=== PATIENT | female | born 1980 | race African-American/Black ===

== ENCOUNTER 2019-04-17 08:29 | Inpatient (IN) ==
[2019-04-17] MEDS ORDERED: CITRIC ACID/SODIUM CITRATE 30 ML UDCUP PO ONE (08:45)
[2019-04-17] MEDS ORDERED: ceFAZolin 3,000 MG in SYRINGE 1 EACH IV ONE (08:45)
[2019-04-17] MEDS ORDERED: FAMOTIDINE 20 MG/2 ML VIAL IV ONE (08:45)
[2019-04-17] MEDS ORDERED: OXYTOCIN/LR 30 UNIT/1,000 ML BAG IV ONE (08:49)
[2019-04-17 09:23] LABS: Basophils % 0.6 % (0.0-0.8); Eosinophils # 0.1 10*3/uL (0.0-0.87); Eosinophils % 1.6 % (0.00-10.9); Hematocrit 36.5 VOL% (35.7-47.0); Hemoglobin 11.2 GM/DL (12.0-16.0); Immature Granulocytes % 0.5 %; Immature Granulocytes Absolute 0.03 #; Lymphocytes # 1.3 10*3/uL (1.4-4.0); Lymphocytes % 20.9 % (21.3-54.2); Mean Corpuscular HGB Conc 30.7 GM/DL (32-36); Mean Corpuscular Volume 80.2 FL (87-102); Mean Platelet Volume 9.4 FL (9.6-12.0); Monocytes % 5.2 % (1.7-12.7); Neutrophils % 71.2 % (38.7-73.9); Platelet Count 306 T/CUMM (130-400); Red Blood Count 4.55 MC/CUMM (3.8-5.5); Red Cell Distribution Width 16.7 % (9.3-17.3); White Blood Count 6.3 T/CUMM (4-12)
[2019-04-17] MEDS: LACTATED RINGERS 1,000 ML IV SCH ×2 (09:30→23:31)
[2019-04-17 09:34] LABS: INR 0.9; PT Patient Result 9.4 SECS (9.6-12.2); Partial Thromboplastin Time 28.5 SECS (20.8-36.0)
[2019-04-17 09:39] LABS: Bilirubin,Direct 0.16 MG/DL (0.0-0.20); Uric Acid 5.1 MG/DL (2.6-6.0)
[2019-04-17] MEDS ORDERED: fentaNYL 100 MCG/2 ML VIAL ONE (10:37)
[2019-04-17] MEDS ORDERED: PHENYLEPHRINE 1 MG/10 ML SYRINGE IV ONE ×2 (10:37→14:05)
[2019-04-17] MEDS ORDERED: BUPIVACAINE SPINAL 0.75% 2 ML AMP SPINAL ONE (10:38)
[2019-04-17] MEDS ORDERED: MORPHINE 10 MG/10 ML VIAL ONE (10:38)
[2019-04-17] MEDS ORDERED: ONDANSETRON 4 MG/2 ML VIAL ONE (10:38)
[2019-04-17] MEDS ORDERED: OXYTOCIN 10 UNIT/ML VIAL IV ONE (10:59)
[2019-04-17 12:45] LABS: Cord Arterial Blood HCO3 14.6 MMOL/L
[2019-04-17 12:46] LABS: Cord Venous Blood HCO3 16.3 MMOL/L; Cord Venous Blood PCO2 66.8 MMHG; Cord Venous Blood PO2 8.4
[2019-04-17] MEDS ORDERED: TISSUE ADHESIVE 1 EACH APPLICATOR TOP ONE (12:47)
[2019-04-17] MEDS ORDERED: diphenhydrAMINE 50 MG/1 ML VIAL IV PRN (13:57)
[2019-04-17] MEDS ORDERED: HYDROmorphone 2 MG/1 ML VIAL IV PRN (13:57)
[2019-04-17] MEDS ORDERED: OXYTOCIN/LR 20 UNIT/1,000 ML BAG IV ONE ×2 (13:57→14:44)
[2019-04-17] MEDS ORDERED: ONDANSETRON 4 MG/2 ML VIAL IV PRN (13:57)
[2019-04-17] MEDS ORDERED: LIDOCAINE 2% 5 ML VIAL ONE (14:05)
[2019-04-17] MEDS ORDERED: PROPOFOL 200 MG/20 ML VIAL IV ONE (14:05)
[2019-04-17] MEDS: KETOROLAC 30 MG/1 ML VIAL IV SCH ×2 (14:14→21:19)
[2019-04-17] MEDS ORDERED: ACETAMINOPHEN 325 MG TABLET PO PRN (16:38)
[2019-04-17] MEDS ORDERED: RHO(D) IMMUNE GLOBULIN 300 MCG SYRINGE IM ONE (16:38)
[2019-04-17] MEDS: ceFAZolin 1,000 MG in SYRINGE 1 EACH IV SCH (18:29)
[2019-04-17 19:11] LABS: Basophils % 0.3 % (0.0-0.8); Eosinophils % 0.1 % (0.00-10.9); Hematocrit 33.7 VOL% (35.7-47.0); Hemoglobin 10.3 GM/DL (12.0-16.0); Immature Granulocytes % 0.6 %; Immature Granulocytes Absolute 0.06 #; Lymphocytes # 1.1 10*3/uL (1.4-4.0); Lymphocytes % 10.8 % (21.3-54.2); Mean Corpuscular HGB Conc 30.6 GM/DL (32-36); Mean Corpuscular Volume 81.2 FL (87-102); Mean Platelet Volume 9.7 FL (9.6-12.0); Monocytes % 5.9 % (1.7-12.7); Neutrophils % 82.3 % (38.7-73.9); Platelet Count 287 T/CUMM (130-400); Red Blood Count 4.15 MC/CUMM (3.8-5.5); Red Cell Distribution Width 16.8 % (9.3-17.3); White Blood Count 9.9 T/CUMM (4-12)
[2019-04-17] MEDS ORDERED: ceFAZolin 1,000 MG in SYRINGE 1 EACH IV SCH (20:00)
[2019-04-17] MEDS: DOCUSATE SODIUM 100 MG CAPSULE PO SCH (21:18)
[2019-04-17] MEDS ORDERED: diphenhydrAMINE 50 MG/1 ML VIAL IM PRN (23:36)
[2019-04-18] MEDS ORDERED: diphenhydrAMINE 50 MG/1 ML VIAL IM PRN (00:22)
[2019-04-18] MEDS ORDERED: diphenhydrAMINE 50 MG/1 ML VIAL IV PRN (00:44)
[2019-04-18] MEDS: KETOROLAC 30 MG/1 ML VIAL IV SCH ×2 (03:25→09:37)
[2019-04-18] MEDS: ceFAZolin 1,000 MG in SYRINGE 1 EACH IV SCH (03:29)
[2019-04-18 05:45] LABS: Basophils % 0.5 % (0.0-0.8); Eosinophils # 0.1 10*3/uL (0.0-0.87); Eosinophils % 1.3 % (0.00-10.9); Hematocrit 32.1 VOL% (35.7-47.0); Hemoglobin 9.5 GM/DL (12.0-16.0); Immature Granulocytes % 0.4 %; Immature Granulocytes Absolute 0.03 #; Lymphocytes # 1.3 10*3/uL (1.4-4.0); Mean Corpuscular HGB Conc 29.6 GM/DL (32-36); Mean Corpuscular Volume 83.6 FL (87-102); Mean Platelet Volume 10.3 FL (9.6-12.0); Monocytes % 7.3 % (1.7-12.7); Neutrophils % 73.5 % (38.7-73.9); Platelet Count 261 T/CUMM (130-400); Red Blood Count 3.84 MC/CUMM (3.8-5.5); Red Cell Distribution Width 16.9 % (9.3-17.3); White Blood Count 7.6 T/CUMM (4-12)
[2019-04-18] MEDS: SIMETHICONE CHEW 80 MG TABLET PO PRN ×2 (09:14→23:37)
[2019-04-18] MEDS: DOCUSATE SODIUM 100 MG CAPSULE PO SCH ×2 (09:14→20:44)
[2019-04-18] MEDS: MAGNESIUM HYDROXIDE SUSP 30 ML UDCUP PO PRN ×2 (09:14→20:44)
[2019-04-18] MEDS: MULTIVITAMIN (PRENATAL) TABLET PO SCH (09:14)
[2019-04-18] MEDS ORDERED: KETOROLAC 30 MG/1 ML VIAL IV SCH (09:30)
[2019-04-18] MEDS: IBUPROFEN 800 MG TABLET PO SCH ×2 (12:49→23:37)
[2019-04-19] MEDS: IBUPROFEN 800 MG TABLET PO SCH ×3 (05:00→21:08)
[2019-04-19] MEDS: DOCUSATE SODIUM 100 MG CAPSULE PO SCH ×2 (09:40→21:08)
[2019-04-19] MEDS: MAGNESIUM HYDROXIDE SUSP 30 ML UDCUP PO PRN (09:40)
[2019-04-19] MEDS: SIMETHICONE CHEW 80 MG TABLET PO PRN (09:40)
[2019-04-19] MEDS: MULTIVITAMIN (PRENATAL) TABLET PO SCH (09:40)
[2019-04-19] MEDS ORDERED: MAGNESIUM CITRATE 300 ML BOTTLE PO ONE (12:25)
[2019-04-20] MEDS: IBUPROFEN 800 MG TABLET PO SCH (04:30)
[2019-04-20 08:06] VITALS: BP 133/71
[2019-04-20] MEDS: DOCUSATE SODIUM 100 MG CAPSULE PO SCH (10:00)
[2019-04-20] MEDS: MULTIVITAMIN (PRENATAL) TABLET PO SCH (10:00)
[2019-04-20] MEDS ORDERED: INFLUENZA VIRUS VACCINE 0.5 ML SYRINGE IM ONE (10:11)
[2019-04-20] MEDS ORDERED: DIPH/TET/ACEL PERT BOOSTER VACCINE 0.5 ML VIAL IM ONE (10:11)
== END 2019-04-20 15:50 | disposition home or self-care (01) | DRG 540 ==
LOC: N.LD 08:29 → N.OB 16:19
PROVIDERS: ADMIT Obstetrics & Gynecology; ATTEND Obstetrics & Gynecology